=== PATIENT | female | born 1995 | race Caucasian/White ===

== ENCOUNTER 2016-12-22 10:32 | Emergency (ER) | payer BC ==
[2016-12-22 11:35] VITALS: BP 130/83
--- NOTE | 2016-12-22 12:13 | UC ---
Respiratory Complaint HPI - HPI Summary HPI Summary: Pt c/o cough, generalized malaise, chills, nasal congestion and one episode of hemoptysis. - History of Current Complaint Chief Complaint: UCRespiratory Stated Complaint: CHEST CONGESTION, COUGH Time Seen by Provider: 12/22/16 11:42 Hx Obtained From: Patient Hx Last Menstrual Period: 11/26/16 ?: No Onset/Duration: Gradual Onset, Lasting Weeks - 1 Timing: Constant Severity Initially: Mild Severity Currently: Mild Character: Cough: Productive - clear Associated Signs And Symptoms: Positive: URI, Nasal Congestion - Risk Factors Pulmonary Embolism Risk Factors: Negative Cardiac Risk Factors: Negative Pseudomonas Risk Factors: Negative Tuberculosis Risk Factors: Communal Living - Allergies/Home Medications Allergies/Adverse Reactions: Allergies Allergy/AdvReac Type Severity Reaction Status Date / Time No Known Allergies Allergy Verified 12/22/16 11:30 PMH/Surg Hx/FS Hx/Imm Hx Previously Healthy: Yes - Surgical History Surgical History: Yes Surgery Procedure, Year, and Place: right knee/tear - Family History Known Family History: Positive: Cardiac Disease - Social History Occupation: [employer] Lives: With Family Alcohol Use: None Substance Use Type: None Smoking Status (MU): Never Smoked Tobacco Review of Systems Constitutional: Chills, Fatigue Skin: Negative Eyes: Negative ENT: Other - nasal congestion Respiratory: Cough Cardiovascular: Negative Gastrointestinal: Negative Genitourinary: Negative Motor: Negative Neurovascular: Negative Musculoskeletal: Negative Neurological: Negative Psychological: Negative All Other Systems Reviewed And Are Negative: Yes Physical Exam Triage Information Reviewed: Yes Appearance: Ill-Appearing Vital Signs: Initial Vital Signs Temp 98.6 F 12/22/16 11:31 Pulse 86 12/22/16 11:31 Resp 16 12/22/16 11:31 BP 130/83 12/22/16 11:31 Pulse Ox 99 12/22/16 11:31 Vital Signs Reviewed: Yes Eye Exam: Normal ENT Exam: Other ENT: Positive: Nasal congestion Neck exam: Normal Respiratory Exam: Normal Cardiovascular Exam: Normal Musculoskeletal Exam: Normal Neurological Exam: Normal Psychological Exam: Normal Skin Exam: Normal UC Diagnostic Evaluation - Laboratory O2 Sat by Pulse Oximetry: 99 Respiratory Course/Dx - Differential Dx/Diagnosis Differential Diagnosis/HQI/PQRI: Bronchitis, Influenza, Other - pneumonia, viral syndrome Provider Diagnoses: bronchitis Discharge - Discharge Plan Condition: Stable Disposition: HOME Prescriptions: Azithromycin TAB* [Zithromax TAB (Z-MAZIN) 250 mg #6 tabs] 2 tab PO .TODAY, THEN 1 DAILY #1 mazin Benzonatate CAP* [Tessalon 100 MG CAP*] 100 mg PO Q8H PRN #30 cap PRN Reason: Cough Patient Education Materials: Acute Bronchitis (ED) Referrals: Hayley Bautista [Primary Care Provider] - If Needed (Please follow up with your PCP or return to clinic a needed. )
== END 2016-12-22 12:16 | disposition home or self-care (01) ==
LOC: UCCORT 10:32
DX: J40 Bronchitis, not specified as acute or chronic (principal)
CPT/HCPCS: 99212; G0463

== ENCOUNTER 2017-10-11 16:45 | Emergency (ER) | payer BC ==
[2017-10-11 17:23] VITALS: BP 132/82
--- NOTE | 2017-10-11 17:36 | ED ---
GI/ HPI - HPI Summary HPI Summary: 22F presents with urgency and frequency for past two days. she states today she developed the flank pain mostly on her right. has had lower abdominal pain. admits to nausea but no vomiting. no fevers. no history of pyelo or kidney stones. no abnormal vaginal discharge. she admits to frequency. - History of Current Complaint Chief Complaint: UCGU Time Seen by Provider: 10/11/17 17:24 Stated Complaint: URINARY COMP, CRAMPING, LOW BACK PAIN Hx Last Menstrual Period: 09/26/17 Pain Intensity: 6 - Allergy/Home Medications Allergies/Adverse Reactions: Allergies Allergy/AdvReac Type Severity Reaction Status Date / Time No Known Allergies Allergy Verified 10/11/17 17:19 Home Medications: Home Medications Amoxicillin PO (*) [Amoxicillin 875 MG (*)] 875 mg PO BID 10/11/17 [History Confirmed 10/11/17] PMH/Surg Hx/FS Hx/Imm Hx Endocrine/Hematology History: Denies: Hx Anticoagulant Therapy Respiratory History: Denies: Hx Asthma - Surgical History Surgery Procedure, Year, and Place: right knee/tear Infectious Disease History: No Infectious Disease History: Denies: Traveled Outside the [place] in Last 30 Days - Family History Known Family History: Positive: Cardiac Disease - Social History Alcohol Use: Occasionally Substance Use Type: Reports: None Smoking Status (MU): Never Smoked Tobacco Review of Systems Negative: Fever Negative: Chest Pain Negative: Shortness Of Breath Positive: burning, flank pain, urgency All Other Systems Reviewed And Are Negative: Yes Physical Exam Triage Information Reviewed: Yes Vital Signs On Initial Exam: Initial Vitals Temp Pulse Resp BP Pulse Ox 98.7 F 87 20 132/82 100 10/11/17 17:17 10/11/17 17:17 10/11/17 17:17 10/11/17 17:17 10/11/17 17:17 Vital Signs Reviewed: Yes Appearance: Positive: Well-Appearing Skin: Positive: Warm, Dry Head/Face: Positive: Normal Head/Face Inspection Eyes: Positive: Normal, Conjunctiva Clear ENT: Positive: Pharynx normal Respiratory/Lung Sounds: Positive: Clear to Auscultation, Breath Sounds Present Cardiovascular: Positive: Normal, RRR Abdomen Description: Positive: Soft, CVA Tenderness (R) Bowel Sounds: Positive: Present Musculoskeletal: Positive: Normal Neurological: Positive: Normal Psychiatric: Positive: Normal Diagnostics - Vital Signs Vital Signs Temp Pulse Resp BP Pulse Ox 10/11/17 17:17 98.7 F 87 20 132/82 100 - Laboratory Lab Results: Lab Results 10/11/17 Range/Units 17:29 POC Urine Color Yellow POC Urine Clarity Clear POC Urine pH 6.0 (5-9) POC Ur Specif [place] 1.025 (1.010-1.030) POC Urine Protein 2+ A (Negative) POC Ur Glucose (UA) Negative (Negative) POC Urine Ketones Trace A (Negative) POC Urine Blood 3+ A (Negative) POC Urine Nitrite Negative (Negative) POC Urine Bilirubin Negative (Negative) POC Urine Urobilinogen 0.2 (Negative) POC U Leukocyte Esteras Trace A (Negative) Lab Statement: Any lab studies that have been ordered have been reviewed, and results considered in the medical decision making process. GIGU Course/Dx - Course Course Of Treatment: 22F presents with urgency and frequency for past two days. she states today she developed the flank pain mostly on her right. has had lower abdominal pain. admits to nausea but no vomiting. no fevers. no history of pyelo or kidney stones. no abnormal vaginal discharge. she admits to frequency. on exam right CVA tenderness. urine pos leuko. will treat with cipro for 7 days to treat for potential pyelo. warned if develop persistent fevers to go to ED. will have follow up with primary as blood pressure is elevated at this visit in pre-htn range. patient understand and agrees with plan. - Diagnoses Differential Diagnoses - Female: Pyelonephritis, Urinary Tract Infection, Ureteral Calculi Provider Diagnoses: UTI (urinary tract infection) Discharge - Sign-Out/Discharge Documenting (check all that apply): Discharge/Admit/Transfer - Discharge Plan Condition: Good Disposition: HOME Prescriptions: Ciprofloxacin TAB* [Cipro 500 MG TAB*] 500 mg PO BID #13 tab Phenazopyridine 200 mg (NF) [Pyridium 200 MG tab *] 200 mg PO TID #6 tab Patient Education Materials: Urinary Tract Infection in Women (ED) Referrals: Ami Jolley NP [Primary Care Provider] - Additional Instructions: Take antibiotic twice a day for 10 days take pyridium three times a day for 2 days with food Drink plenty of water Use alternative forms of control Take Tylenol or ibuprofen every 6 hours as needed for pain Return to ED if develop fever, or any new or worsening symptoms - Billing Disposition and Condition Condition: GOOD Disposition: Home
[2017-10-11] MEDS ORDERED: Ciprofloxacin TAB* 500 MG PO ONE (17:43)
== END 2017-10-11 17:58 | disposition home or self-care (01) ==
LOC: UCCORT 16:45
DX: N39.0 Urinary tract infection, site not specified (principal); B96.20 Unspecified Escherichia coli [E. coli] as the cause of diseases classified elsewhere
CPT/HCPCS: 81003; 84702; 87077; 87086; 87186; 99212; A9270-GY; G0463